=== PATIENT | female | born 1975 | race Caucasian/White ===

== ENCOUNTER 2019-12-23 17:37 | Emergency (ER) | payer OTHER ==
[~2019-12-23] VITALS: Ht 162.6 cm; Wt 74.8 kg
[2019-12-23 17:39] VITALS: BP 132/79
--- NOTE | 2019-12-23 17:50 | NUR ---
PT AMBULATED TO BED 11.
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
--- NOTE | 2019-12-23 18:38 | NUR ---
ALEJANDRO PINZON EVALUATING PT AT BEDSIDE
--- NOTE | 2019-12-23 18:52 | NUR ---
MANAGER BILINGUAL AT BEDSIDE WITH W/C
--- NOTE | 2019-12-23 19:05 | NUR ---
pt endorsement recieved from Naty [facility]. assumed pt care at this time.
--- NOTE | 2019-12-23 19:20 | NUR ---
PT TAKEN TO RAD
--- NOTE | 2019-12-23 19:28 | NUR ---
PT RETURN FROM RAD
[2019-12-23] MEDS ORDERED: KETOROLAC 30 MG/ML VIAL ONE (19:49)
[2019-12-23] MEDS ORDERED: KETOROLAC 30 MG/ML VIAL IM ONE (19:50)
== END 2019-12-23 20:39 | disposition home or self-care (01) ==
LOC: MED 17:37
DX: S16.1XXA Strain of muscle, fascia and tendon at neck level, initial encounter (principal); S20.211A Contusion of right front wall of thorax, initial encounter; V49.9XXA Car occupant (driver) (passenger) injured in unspecified traffic accident, initial encounter; Y93.89 Activity, other specified; Y92.89 Other specified places as the place of occurrence of the external cause; Y99.8 Other external cause status
CPT/HCPCS: 71101; 81002; 81025; 96372; 99283; J1885